=== PATIENT | female | born 1960 | race Two or more races ===

== ENCOUNTER 2024-07-26 08:42 | Day surgery (SDC) | payer MEDICAID ==
[2024-07-23 09:18] LABS: Basophils # (auto) 0 10 ^3/uL (0-0.2); Basophils % (auto) 0.6 % (0.0-2.0); Eosinophils # (auto) 0.2 10 ^3/uL (0-0.8); Hemoglobin 16.5 g/dL (12.2-16.2); Lymphocytes # (auto) 2.5 10 ^3/uL (0.4-5.4); Lymphocytes % (auto) 34.4 % (10.0-50.0); Mean Corpuscular Hgb Conc. 34.3 g/dL (32.0-36.0); Mean Corpuscular Volume 90.4 fL (80.0-100.0); Monocytes # (auto) 0.5 10 ^3/uL (0-1.3); Neutrophils # (auto) 3.9 10 ^3/uL (1.6-8.6); Nucleated Red Blood Cells % 0.1 %; Platelet Count (auto) 236 10^3/uL (140-450); White Blood Cell 7.1 10^3/uL (4.4-10.8)
[2024-07-23 09:24] LABS: INR 0.93 (0.9-1.15); Partial Thromboplastin Time 27.1 SEC (24.5-34.5); Prothrombin Time 9.9 sec (9.3-11.8)
[2024-07-23 09:28] LABS: Alkaline Phosphatase 97 U/L (46-116); Anion Gap 8 (5-15); Aspartate Aminotransferase 28 U/L (13-40); BUN/Creatinine Ratio 15.7 (10.0-20.0); Bilirubin, Total 0.5 mg/dL (0.2-1.0); Blood Urea Nitrogen 13 mg/dL (9-23); Calcium 10.2 mg/dL (8.7-10.4); Carbon Dioxide 28 mmol/L (20-31); Chloride 106 mmol/L (98-107); Potassium 4.9 mmol/L (3.5-5.1); Sodium 142 mmol/L (136-145); Total Protein 7.6 g/dL (5.7-8.2)
[2024-07-23 09:31] LABS: Alanine Aminotransferase 47 U/L (7-40); Albumin 5.1 g/dL (3.2-4.8); Glucose 113 mg/dL (74-106)
[~2024-07-26] VITALS: Ht 157.5 cm; Wt 101.2 kg
[~2024-07-26 08:42] MED LIST: ALBUAER3 IN; ASPI1TAB20 PO; ATOR20TA50 PO; CHOL20007 PO; CYAN100T7 PO; OMEG100019 PO; OMEGCAP28 OR
[2024-07-26] MEDS ORDERED: diphenhdrAMINE HCL 50 MG/1 ML VL ONE (09:58)
[2024-07-26 10:14] VITALS: TEMP 98
[2024-07-26] MEDS: fentaNYL CITRATE 100 MCG/2 ML VL ONE (10:18)
[2024-07-26] MEDS: MIDAZOLAM HCL 2MG/2ML 2ml VIAL (1mg/ml) ONE (10:18)
--- NOTE | 2024-07-26 10:43 | DVHNC2 ---
Procedure - DATE OF PROCEDURE: July 26, 2024 SURGEON: REJI BUSH MD REFERRING PROVIDER: Dr. Bhanu LIM PROCEDURE PERFORMED: 1 Colonoscopy with moderate sedation 2. Colonoscopy with cold biopsy polypectomy 3. Colonoscopy with cold snare polypectomy 4. Colonoscopy with Endoclip placement x1 PRE-PROCEDURE DIAGNOSIS: 1. Colon cancer screening POSTPROCEDURE DIAGNOSIS: 1.4 colon polyps 2. Mild left-sided diverticulosis 3. Internal hemorrhoids INDICATIONS FOR PROCEDURE: The patient is a 63-year-old female presents for outpatient colonoscopy for screening. She is average risk. MEDICATIONS USED: 4 mg of Versed IV and 100 mcg IV given in incremental doses DETAILS OF THE PROCEDURE: Informed consent was obtained after risks, benefits, and alternatives, were discussed at length with the patient. The patient gave consent to the procedure as well as the medication used for sedation. The patient was placed in the left lateral decubitus position. Digital rectal exam showed internal hemorrhoids. An Olympus variable torsion pediatric colonoscope was inserted into the rectum and advanced to the cecum. The cecum was identified by the ileocecal valve and the appendiceal orifice. The scope was then withdrawn. The prep was excellent with only small amounts of liquid stool. Th t there was a 5 mm ascending colon polyp completely removed with cold snare polypectomy, one Endoclip was placed for mucosal defect. There were two smaller polyps in the ascending colon removed with cold biopsy forceps completely. There was one descending colon polyp removed with cold biopsy forceps completely. There was mild left-sided diverticulosis. Retroflexion showed internal hemorrhoids. The patient tolerated the procedure well. [facility] BOWEL PREP SCORE: 9 COLONOSCOPY START TIME: 1026 CECUM TIME: 1027 COLONOSCOPY END TIME:1037 IMPRESSION: 1. Four colon polyps removed with cold snare and cold biopsy forceps 2. Mild left-sided diverticulosis 3. Small internal hemorrhoids RECOMMENDATIONS: 1. Follow up in GI clinic for procedure and pathology results 2. High-fiber diet 3. Follow up with primary care physician 4. Repeat colonoscopy in three years unless otherwise indicated. I WOULD LIKE TO THANK DR. VILLARREAL FOR THIS REFERRAL REJI BUSH MD Jul 26, 2024 10:43
[2024-07-26 10:44] VITALS: PULSE 76; RESP 12; O2SAT 96
[2024-07-26 10:59] VITALS: BP 130/76; PULSE 66; RESP 12; O2SAT 95
== END 2024-07-26 11:33 | disposition home or self-care (01) ==
LOC: GI 08:42
PROVIDERS: ATTEND Specialist
DX: R10.32 Left lower quadrant pain (principal); D12.2 Benign neoplasm of ascending colon; K63.5 Polyp of colon; K57.30 Diverticulosis of large intestine without perforation or abscess without bleeding; E78.00 Pure hypercholesterolemia, unspecified; J45.909 Unspecified asthma, uncomplicated; Z79.82 Long term (current) use of aspirin; Z79.899 Other long term (current) drug therapy; Z90.710 Acquired absence of both cervix and uterus; Z90.89 Acquired absence of other organs; Z98.890 Other specified postprocedural states
CPT/HCPCS: 36415; 45380; 45385; 80053; 85025; 85610; 85730; 88305; J2250; J3010